=== PATIENT | female | born 1975 | race Asian ===

== ENCOUNTER 2021-12-17 12:13 | Day surgery (SDC) | payer OTHER ==
[2021-12-13 16:12] VITALS: BMI 26.4
[2021-12-17 14:02] VITALS: TEMP 97.4
[2021-12-17 14:14] VITALS: BP 110/50; PULSE 68
== END 2021-12-17 14:45 | disposition home or self-care (01) ==
LOC: FASU-ENDO 12:13
PROVIDERS: ATTEND Internal Medicine Gastroenterology
PROC: 0DJ08ZZ Inspection of Upper Intestinal Tract, Via Natural or Artificial Opening Endoscopic (ICD-10-PCS; principal; 2021-12-17 13:43)
DX: R10.13 Epigastric pain (principal)
CPT/HCPCS: 82962; 84703